=== PATIENT | male | born 2005 | race Two or more races ===

== ENCOUNTER 2024-09-01 10:26 | Emergency (ER) | payer MEDICAID, SELFPAY ==
[2024-09-01 11:33] VITALS: BP 129/70; PULSE 63; RESP 17; TEMP 37; O2SAT 99; BMI 24.9
--- NOTE | 2024-09-01 11:44 | XR_ITS ---
Examination: Shoulder,left, 3 views Technique: Shoulder AP internal rotation, AP external rotation, Y view shoulder, 3 views Exam date and time :September 01, 2024 11:46 AM Indications: Football injury to the shoulder, shoulder pain Findings: No shoulder fracture or dislocation No foreign body Minimal 2 mm AC joint offset Impression: No shoulder fracture or dislocation Minimal, 2 mm, AC joint offset, age indeterminate, recommend weightbearing bilateral AC joint views as clinically warranted
--- NOTE | 2024-09-01 11:51 | EDNOTE_ITS ---
Upper Extremity Injury RME/HPI General Chief Complaint: Extremity Injury, Upper Stated Complaint: LEFT SHOULDER PAIN, SORE THROAT Time Seen by Provider: 09/01/24 10:43 Arrival date/time: 09/01/24 10:26 Limitations: no limitations RME / HPI RME / HPI narrative: 19-year-old male with no reported past medical history presents for evaluation of left shoulder pain x 1 day. He reports that he was playing football ye sterday morning and was tackled to the ground on his left side. He denies head trauma and LOC. Denies numbness, tingling, additional injury. Patient also notes sore throat and productive cough x 1 day. Denies fever, chills, abdominal pain, nausea, vomiting, diarrhea. MD complaint: injury to: left Onset (ago): day(s) Related Data Previous Rx's ?Medication ?Instructions ?Recorded cyclobenzaprine 10 mg tablet 10 mg PO TID PRN muscle spasm #30 09/01/24 tabs Allergies Allergy/AdvReac Type Severity Reaction Status Date / Time No Known Allergies Allergy Verified 05/18/22 14:36 Review of Systems Constitutional Constitutional: Denies chills, Denies fever(s), Denies frequent falls and Denies headache(s) Eyes Eyes: Denies blurry vision and Denies change in vision ENT Ears, Nose, Mouth, and Throat: Denies dental pain, Denies otalgia, Denies headache(s), Denies mouth pain, Denies neck pain, Reports odynophagia and Reports sore throat Cardiovascular Cardiovascular: Denies chest pain and Denies dyspnea Respiratory Respiratory: Denies change in phlegm color, Reports cough, Denies dyspnea, Denies excessive phlegm production, Denies hemoptysis and Reports pain with c ough Gastrointestinal Gastrointestinal: Denies nausea, Reports odynophagia and Denies vomiting Musculoskeletal Musculoskeletal: Denies back pain, Denies neck pain and Denies numbness Integumentary/Breasts Skin/Breast: Denies rash Neurologic Neurologic: Denies frequent falls, Denies headache(s) and Denies numbness Past Medical History Social History SMOKING STATUS: Current some day smoker ED Exam General Limitations: Present no limitations General appearance: Present alert and in no apparent distress Head Head exam: Present atraumatic and normocephalic Eye Eye exam: Present normal appearance and EOMI ENT ENT exam: Present TM's normal bilaterally Expanded ENT Exam Mouth exam: Present lip swelling; Absent drooling or trismus Throat exam: Present tonsillar erythema; Absent tonsillomegaly, tonsillar exudate, R peritonsillar mass, L peritonsillar mass or muffled voice Neck Neck exam: Present normal inspection, full ROM and trachea midline; Absent lymphadenopathy Chest Chest inspection: Present normal inspection and symmetric chest wall rise Respiratory Respiratory exam: Present normal lung sounds bilaterally; Absent wheezes or stridor Cardiovascular Cardiovascular exam: Present regular rate and +S1 Abdominal Exam Abdominal exam: Present soft; Absent distention Expanded Upper Extremity Exam Shoulder exam: Present other (left scapular tenderness to palpation. ); Absent full ROM, tenderness, swelling, abrasion, ecchymosis, deformity, crepitus, dislocation or tenderness over AC joint Arm exam: Present normal inspection Elbow exam: Present normal inspection Forearm/Wrist exam: Present normal inspection Hand exam: Present normal inspection Vascular exam: Normal capillary refill Back Exam Back exam: Present normal inspection and full ROM Neurological Exam Neurological exam: Present alert and normal gait Psychiatric Psychiatric exam: Present normal affect Skin Skin exam: Present warm, dry and normal color Course Quality Measures none Orders Category Date Time Status Bedside COVID-19 Antigen Test NOW Care 09/01/24 11:44 Completed Bedside Influenza A&B Antigen Test NOW Care 09/01/24 11:45 Completed XR shoulder LT min 2V Stat Exams 09/01/24 11:44 Completed CYCLObenzaPRINE [Flexeril] Med 09/01/24 11:44 Discontinued 5 mg PO X1 ONE Dexamethasone Inj [Decadron Inj] Med 09/01/24 13:27 Discontinued 10 mg IM X1 ONE Ketorolac Inj [Toradol Inj] Med 09/01/24 11:44 Discontinued 30 mg IM X1 ONE Vital Signs Vital signs: Vital Signs Temperature 98.6 F 09/01/24 11:33 Pulse Rate 63 09/01/24 11:33 Respiratory Rate 17 09/01/24 11:33 Blood Pressure 129/70 09/01/24 11:33 Pulse Oximetry (%) 99 09/01/24 11:33 Oxygen Delivery Method Room Air 09/01/24 11:33 Pulse ox 9 9% on room air, within normal limits. Extremity Injury MDM Narrative MDM Narrative:: 19-year-old male presented with left shoulder pain and sore throat x 1 day. X- ray left shoulder showed type II AC separation. Fortunately patient neurovascularly intact with no dislocation, therefore CT was not obtained at this time. Patient was advised to rest and use shoulder immobilizer which she is provided in the department. Patient also noted sore throat with mild tonsillar erythema without exudate. Viral swabs today were negative. Patient afebrile and low risk when Centor score applied therefore rapid strep was deferred today and no antibiotics were started. Patient was given a shot of steroid in the department which improved his sore throat. He was also given a shot of Toradol which improved his left shoulder pain. Ultimately patient was discharged home with plan to follow-up with primary care within the next 2 to 3 days for reevaluation. I advised him to request Ortho outpatient follow-up if his shoulder pain does not improve. I stressed he needs to return to the ED if his symptoms worsen or change. Patient stable at time of discharge. Patient data External records reviewed:: [facility] previous records Clinical information provided by:: patient Social determinants that could affect healthcare access:: none Patient has the following chronic illnesses:: None reported. How is presenting disease/condition affected by chronic disease/condition?: no chronic disease Evaluation data The following diagnostics were reviewed and interpreted by me:: lab results and radiology exam(s) Lab and/or radiology exams considered but not ordered:: Blood work considered not ordered. CT considered not ordered. Interpretation Summary: Left shoulder x-ray significant for type II AC joint separation. No fracture, dislocation on left shoulder x-ray. Viral swabs negative. Medications / Prescriptions Medications or Prescriptions considered but not ordered:: Rx given. Medication administrations:: Medication Administration History Discontinued Medications Cyclobenzaprine HCl (Cyclobenzaprine 5 Mg Tablet) 5 mg PO X1 ONE Stop: 09/01/24 11:45 Last Admin: 09/01/24 11:59 Dose: 5 mg Documented By: MP Dexamethasone Sodium Phosphate (Dexamethasone Sod Phos Inj 10 Mg/Ml Vial) 10 mg IM X1 ONE Stop: 09/01/24 13:28 Last Admin: 09/01/24 13:43 Dose: 10 mg Documented By: Ketorolac Tromethamine (Ketorolac Inj 60 Mg/2 Ml Vial) 30 mg IM X1 ONE Stop: 09/01/24 11:45 Last Admin: 09/01/24 12:00 Dose: 30 mg Documented By: MP Rx given. Consultations Consultation(s) initiated? (list below): No Diagnosis Upper Extremity Injury Differential Diagnosis: dislocation of shoulder, fracture of humerus, fracture of clavicle and other Most likely diagnosis given after review of the tests above:: Type II AC seperation Admission Indicated Admission indicated?: not indicated Admission Request Was there a request for admission?: No Disposition Plan Disposition Plan: Discharge Discharge Attestation Discharge Attestation: The patient and all family members were given an opportunity to ask questions and understood the discharge instructions. Discharge instructions specifically effects, indications for sooner follow up or return to the emergency department, and the expected course of current diagnosis. Patient condition: Stable Discharge Plan Plan Patient Disposition: HOME (Self Care) Disposition Comment: stable Prescriptions/Referrals Prescriptions/Med Rec: New cyclobenzaprine 10 mg tablet 10 mg PO TID PRN (Reason: muscle spasm) Qty: 30 0RF Referrals: No Primary/Family,Physician [Primary Care Provider] - In 1 week Problem List Clinical Impression: Acromioclavicular joint separation, type 2, Acute pain of right shoulder, Acute pharyngitis Patient/Caregiver Discharge Instructions Other Activity Instructions:: Follow-up with primary care on Wednesday for reevaluation. Do not lift or play sports until you have been reevaluated for right shoulder pain. Continue to treat throat pain as needed with Tylenol and/or ibuprofen. Return to the ED if her symptoms worsen or change Education Materials: ED RICE, ED Shoulder Pain, Uncertain Cause Print Language: Eritrean Stand Alone Forms: Ophelia Award Info., Work/School Release, Patient Portal Info Letter REBEKAH/DORI Supervising Physician CHELSEA Supervising Physician: Dr. Padilla
[2024-09-01] MEDS: CYCLObenzaPRINE 5 MG TABLET PO (11:59)
[2024-09-01] MEDS: KETOROLAC INJ 60 MG/2 ML VIAL 30 MG IM (12:00)
[2024-09-01] MEDS: DEXAMETHASONE SOD PHOS INJ 10 MG/ML VIAL IM (13:43)
== END 2024-09-01 14:00 | disposition home or self-care (01) ==
PROVIDERS: Emergency Provider Emergency Medicine
DX: S43.102A Unspecified dislocation of left acromioclavicular joint, initial encounter (principal); J02.9 Acute pharyngitis, unspecified; Y93.61 Activity, american tackle football
CPT/HCPCS: 73030; 87400; 87811; 96372; 99283; J1100; J1885; A9270